=== PATIENT | female | born 1990 | race American Indian/Alaskan Native ===

== ENCOUNTER 2019-11-05 13:25 | Emergency (ER) | payer SELFPAY ==
[2019-11-05 13:50] VITALS: BP 110/63
--- NOTE | 2019-11-05 13:53 | Emergency Department Report ---
Chief Complaint: Urogenital-Female Stated Complaint: RT BREAST LUMP/PAIN Time Seen by Provider: 11/05/19 13:47 - HPI History of Present Illness: This is a 29-year-old female nontoxic well in appearance with no signs of distress presents to the ED with complaint of right breast lump x1 month. Patient denies any pain. Patient denies any pus, or drainage. Denies any radiation. Patient denies any other symptoms. Denies any fever, chills, headache, nausea, vomiting, chest pain or SOB. Denies any other complaints. - Exam Physical Exam: Navdeep Lozano RN present during exam. Right breast mobile lump noted. NO induration. No flutance. Nontender to touch. No cellulits. MSE screening note: Focused history and physical exam performed. Due to findings the following was ordered: ED Medical Decision Making - Medical Decision Making This is a 29-year-old female that presents with nonmedical emergency complaint. I gave patient many different referrals that patient can see today to follow-up. Patient was instructed to Follow-up with a primary care doctor in 3-5 days or if symptoms worsen and continue return to emergency room as soon as possible. At time of discharge, the patient does not seem toxic or ill in appearance. No acute signs of distress noted. Patient agrees to discharge treatment plan of care. No further questions noted by the patient. ED Disposition for MSE Clinical Impression: Lump of right breast Disposition: Z-07 MED SCREENING EXAM-LEFT Is pt being admited?: No Does the pt Need Aspirin: No Condition: Stable Additional Instructions: Follow-up with a primary care doctor in 3-5 days or if symptoms worsen and continue return to emergency room as soon as possible. Referrals: SARAH DUNN MD [Referring] - 3-5 Days LIZ RAMOS MD [Staff Physician] - 3-5 Days [facility] [Outside] - 3-5 Days
== END 2019-11-05 14:00 | disposition left against medical advice (07) ==
LOC: ED 13:25
DX: N63.10 Unspecified lump in the right breast, unspecified quadrant (principal)